=== PATIENT | female | born 1960 | race Caucasian/White ===

== ENCOUNTER 2020-10-02 14:01 | Outpatient (CLI) | payer BC | END 2020-10-02 14:02 | disposition home or self-care (01) | LOC: BICCT 14:01 | PROVIDERS: ATTEND Urology | DX: R10.2 Pelvic and perineal pain (principal); R35.0 Frequency of micturition; N32.81 Overactive bladder; N85.4 Malposition of uterus; I70.90 Unspecified atherosclerosis | CPT/HCPCS: 74176 ==